=== PATIENT | female | born 1955 | race Caucasian/White ===

== ENCOUNTER 2017-12-16 08:30 | Emergency (ER) | payer OTHER ==
[2017-12-16] MEDS: LIDOCAINE 1%/EPI 30 ML INJ INJ (09:19)
[2017-12-16] MEDS: ACETAMINOPHEN 500 MG TAB PO (11:38)
== END 2017-12-16 12:15 | disposition home or self-care (01) ==
LOC: FTE 08:30
DX: S01.81XA Laceration without foreign body of other part of head, initial encounter (principal); I10 Essential (primary) hypertension; W22.8XXA Striking against or struck by other objects, initial encounter; Y92.9 Unspecified place or not applicable
CPT/HCPCS: 12016; 70450; 99284-25